=== PATIENT | male | born 1955 | race Asian ===

== ENCOUNTER 2017-02-14 07:18 | Day surgery (SDC) | payer OTHER ==
[2017-02-14] VITALS (14 sets, daily range): BP systolic 118–166; BP diastolic 62–86; PULSE 62–82; RESP 10–22; Ht 162.6 cm; Wt 65.2 kg
[~2017-02-14] VITALS: Ht 162.6 cm; Wt 65.2 kg
[~2017-02-14 07:18] MED LIST: CEFAZOLIN 2 GM/50 ML (PMX) 50 ML IVPB SCH; SOD CHLORIDE 0.9% 1,000 ML IV SCH
[2017-02-14 08:53] LABS: ADD SCAN DIFF NO
[2017-02-14 08:55] LABS: BASOPHIL # 0.1 10^3/ul (0.0-0.1); BASOPHILS % 0.9 % (0.0-2.0); EOSINOPHILS # 0.3 10^3/ul (0.0-0.5); EOSINOPHILS % 4.7 % (0.0-7.0); HEMATOCRIT 44.4 % (42.0-52.0); HEMOGLOBIN 15.5 g/dl (14.0-18.0); LYMPHOCYTES % 28.4 % (15.0-51.0); MEAN CORPUSCULAR HEMOGLOBIN 32.3 pg (29.0-33.0); MEAN CORPUSCULAR HGB CONC 34.9 g/dl (32.0-37.0); MEAN CORPUSCULAR VOLUME 92.5 fl (82.0-101.0); MEAN PLATELET VOLUME 9.2 fl (7.4-10.4); MONOCYTE # 0.6 10^3/ul (0.3-0.9); MONOCYTES % 8.9 % (0.0-11.0); PLATELET COUNT 261 10^3/UL (140-415); RED CELL DISTRIBUTION WIDTH 11.8 % (11.5-14.5)
[2017-02-14 09:12] LABS: INR 0.98
[2017-02-14 09:13] LABS: PARTIAL THROMBOPLASTIN TIME 31.8 Sec (25.0-35.0)
--- NOTE | 2017-02-14 09:22 | RADRPT ---
PROCEDURE: XR Chest. CLINICAL INDICATION: Preop TECHNIQUE: A single AP view of the chest was obtained. COMPARISON: None. FINDINGS: There is mild coarsening of the interstitial markings. No pleural effusion or pneumothorax is seen. The cardiomediastinal silhouette is mildly enlarged. Calcifications are seen within the aortic ar ch. The osseous structures are unremarkable. IMPRESSION: 1. Chronic-appearing interstitial changes. 2. Mild cardiomegaly and aortic atherosclerosis. RPTAT: HH .Rosalba Canseco MD, MD Date Time Electronically viewed and signed by .Rosalba Canseco MD, MD on 02/14/2017 09:21 .G/
[2017-02-14 09:30] LABS: CALCIUM 9.1 mg/dl (8.4-10.2); CREATININE 0.8 mg/dl (0.61-1.24); POTASSIUM 3.8 mmol/L (3.5-5.1)
[2017-02-14] MEDS ORDERED: BUPIVACAINE 0.25% (MPF) 30 ML INJ ONE (10:45)
[2017-02-14] MEDS ORDERED: PROCHLORPERAZINE 10 MG INJ IV PRN (11:00)
[2017-02-14] MEDS ORDERED: OXYCODONE/ACETAMINOPHEN (5/325) TAB PO PRN (11:00)
[2017-02-14] MEDS ORDERED: DIPHENHYDRAMINE 50 MG INJ IV PRN (11:00)
[2017-02-14] MEDS ORDERED: FENTAnyl 50 MCG/ML VIAL IV PRN (11:00)
[2017-02-14] MEDS ORDERED: ONDANSETRON 4 MG INJ IV PRN (11:00)
[2017-02-14] MEDS ORDERED: HYDROmorphONE (0.2 MG/ML) 10ML SYG IV PRN (11:00)
[2017-02-14] MEDS ORDERED: MEPERIDINE 25 MG INJ IV PRN (11:00)
[2017-02-14] MEDS ORDERED: LIDOCAINE 2% (SDV) 5 ML INJ ONE (11:01)
[2017-02-14] MEDS ORDERED: MIDAZOLAM 1 MG/ML 2 ML INJ ONE (11:01)
[2017-02-14] MEDS ORDERED: PROPOFOL 20 ML ONE (11:01)
[2017-02-14] MEDS ORDERED: METOCLOPRAMIDE 10 MG INJ ONE (11:08)
[2017-02-14] MEDS ORDERED: ONDANSETRON 4 MG INJ ONE (11:08)
[2017-02-14] MEDS ORDERED: CEFAZOLIN 1 GM INJ ONE (11:08)
[2017-02-14] MEDS ORDERED: DEXAMETHASONE 4 MG/ML 1 ML INJ ONE (11:08)
[2017-02-14] MEDS ORDERED: FENTAnyl 50 MCG/ML VIAL ONE (11:11)
[2017-02-14] MEDS ORDERED: BUPIVACAINE 0.25% (MPF) 30 ML INJ INJ ONE (11:40)
[2017-02-14] MEDS ORDERED: EPHEDrine SULFATE 50 MG/5 ML SYG ONE (11:42)
--- NOTE | 2017-02-14 11:43 | OPR ---
Date/Time of Note Date/Time of Note DATE: 02/14/17 TIME: 11:41 Operative Report Preoperative Diagnosis left scalp mass abdominal mass Postoperative Diagnosis same Operation/Procedure Performed excision of left scalp mass 6 cm incision and 6 cm mass excision of abdominal mass 3 cm incision and 3 cm mass localized adjacent tissue transfer with the use of skin flaps of 24 sq cm on scalp and 6 sq cm on abd Surgeon: Girma WALLACE Specimens scalp and abdominal masses Girma WALLACE Feb 14, 2017 11:43
--- NOTE | 2017-02-14 14:03 | OPR ---
DATE OF OPERATION: 02/14/2017 INDICATION: This is a 61-year-old male with a left scalp mass and abdominal mass. He requests surg ical excision. Risks, alternatives, benefits, and personnel were discussed with the patient. The p atient expressed understanding and consents to the operation. PREOPERATIVE DIAGNOSES: 1. Abdominal mass. 2. Scalp mass. POSTOPERATIVE DIAGNOSES: 1. Abdominal mass. 2. Scalp mass. OPERATIONS PERFORMED: 1. Excision of scalp mass with 6 cm size incision and 6 cm size mass. 2. Excision of abdominal wall mass with 3 cm size incision and 3 cm size mass. 3. Localized adjacent tissue transfer with the use of skin flaps of 30 square cm. SURGEON: Carly Aguilar MD SPECIMEN: Scalp mass and abdominal mass. COMPLICATIONS: None. ANESTHESIA: General. PROCEDURE: The patient was taken to the OR and prepped and draped in the usual sterile fashion. Lowe rgical time out was performed. IV antibiotics were given. An elliptical incision was made over the abdominal mass with a 15 blade. Dissection cautery was carried down to the mass and circumferentia lly excised. There was good hemostasis. Due to tissue defect, localized adjacent tissue transfer w ith the use of skin flaps was performed. Multilayer closure with interrupted 3-[address] aples. Local anesthesia was injected. Attention was paid to the left scalp mass. A 15 blade was u sed to make an incision over the mass. The mass was excised circumferentially. There was good hemo stasis due to the large tissue defect. Localized adjacent tissue transfer with the use of skin flap s was performed. Multilayer closure with interrupted 3-0 Vicryl and 4-0 Monocryl in a running fashi on. Local anesthesia injected. Dry dressings were applied. Dictated By: CARLY AGUILAR MD SB/NTS Conf#: [id number] DID#: [id number]
--- NOTE | 2017-02-18 10:08 | RADRPT ---
Vent Rate: 59 bpm RR Interval: 0 msec RI Interval: 172 msec QRS Duration: 96 msec QT Interval: 414 msec QTC Interval: 409 msec P-R-T [place]: 69 - 16 - 55 degrees Sinus bradycardia Otherwise normal ECG Electronically Signed By: Dhruv Ray [id number]
== END 2017-02-14 13:50 | disposition home or self-care (01) ==
LOC: SDS 07:18
PROVIDERS: ATTEND Surgery
DX: D17.0 Benign lipomatous neoplasm of skin and subcutaneous tissue of head, face and neck (principal); L82.1 Other seborrheic keratosis; I10 Essential (primary) hypertension
CPT/HCPCS: 14000; 14020; 71010; 80048; 85025; 85610; 85730; 88307; 93005; J0690; J1100; J2250; J2405; J2765; J3010; Z7512; Z7610